=== PATIENT | female | born 1965 | race American Indian/Alaskan Native ===

== ENCOUNTER 2016-06-01 10:09 | Emergency (ER) | payer OTHER ==
[2016-06-01 10:19] VITALS: BP 126/80
--- NOTE | 2016-06-01 10:36 | Emergency Department Report ---
Upper Extremity - HPI Chief Complaint: Extremity Injury, Upper Stated Complaint: LT WRIST PAIN Time Seen by Provider: 06/01/16 10:29 Upper Extremity: Left Wrist Occurred When: 2 Days Mechanism: Twist Severity: moderate Symptoms: Yes Pain with Movement, No Deformity, No Limited Range of Movement, No Numbness, No Weakness, No Swelling Other History: [age]-year-old -British female with a past medical history of asthma comes in for complaint of left wrist pain for 2 days. Patient reports that she had injured her wrist by lifting herself off the floor. Patient reports she took Aleve yesterday evening about 9:00. Patient is wearing a wrist volar joint examination. She says this kind of helps with the pain. ED Review of Systems ROS: Stated complaint: LT WRIST PAIN Other details as noted in HPI ED Past Medical Hx - Past Medical History Previous Medical History?: Yes Hx Hypertension: No Hx Diabetes: No Hx Asthma: Yes - Surgical History Past Surgical History?: Yes Additional Surgical History: fibroid surgery 2011. toe surgery. - Social History Smoking Status: Unknown if ever smoked - Medications Home Medications: Home Medications Medication Instructions Recorded Confirmed Last Taken Type Naproxen [Naprosyn] 500 mg PO BID #30 tablet 10/14/13 Unknown Rx traMADol [Ultram 50 MG tab] 50 mg PO Q6HR PRN #20 tablet 02/17/15 Unknown Rx Albuterol Sulfate [Ventolin HFA] 2 puff IH Q4H PRN #1 hfa.aer.ad 12/02/15 Unknown Rx Cetirizine HCl [ZyrTEC] 10 mg PO DAILY #30 tab.chew 12/02/15 Unknown Rx Fluticasone [Flonase] 1 spray NS QDAY #1 bottle 12/02/15 Unknown Rx Ibuprofen [Motrin 800 MG tab] 800 mg PO Q8HR PRN #30 tablet 06/01/16 Unknown Rx Upper Extremity Exam - Exam General: Vital signs noted. No distress. Alert and acting appropriately. ED Course Vital Signs 06/01/16 10:16 Temperature 97.4 F L Pulse Rate 90 Respiratory 18 Rate Blood Pressure 126/80 O2 Sat by Pulse 99 Oximetry ED Medical Decision Making - Radiology Data Radiology results: report reviewed, image reviewed Ordering Physician: SHARIF MCCLAIN Date of Service: 06/01/16 Procedure(s): XR wrist 2V LT Accession Number(s): [id number] cc: SHARIF MCCLAIN Fluoro Time In Minutes: LEFT WRIST, 2 views: HISTORY: Pain, snuffbox pain. Routine views demonstrate the carpal bones to be well mineralized with well preserved bony mineralization and interosseous joint spaces. The carpal and adjacent articular bones have normal contours. The surrounding soft tissues are unremarkable. IMPRESSION: Unremarkable left wrist. Transcribed By: TTR Dictated By: ASHLEY HENRY JR, MD Electronically Authenticated By: ASHLEY HENRY JR, MD Signed Date/Time: 06/01/16 1041 Critical care attestation.: If time is entered above; I have spent that time in minutes in the direct care of this critically ill patient, excluding procedure time. ED Disposition Clinical Impression: Left wrist sprain Qualifiers: Encounter type: initial encounter Qualified Code(s): S63.502A - Unspecified sprain of left wrist, initial encounter Disposition: DISCHARGED TO HOME OR SELFCARE Is pt being admited?: No Does the pt Need Aspirin: No Condition: Stable Instructions: Wrist Sprain (ED), Wrist Injury (ED) Additional Instructions: Take pain medication as prescribed. Follow with her primary care provider. I recommend wearing a wrist splint. Prescriptions: Ibuprofen [Motrin 800 MG tab] 800 mg PO Q8HR PRN #30 tablet PRN Reason: Pain Referrals: IZAIAH ALATORRE MD [Primary Care Provider] - 3-5 Days Forms: Work/School Release Form(ED)
[2016-06-01] MEDS: MOTRIN PO ONE (10:41)
--- NOTE | 2016-06-01 10:47 | XRay Report ---
LEFT WRIST, 2 views: HISTORY: Pain, snuffbox pain. Routine views demonstrate the carpal bones to be well mineralized with well preserved bony mineralization and interosseous joint spaces. The carpal and adjacent articular bones have normal contours. The surrounding soft tissues are unremarkable. IMPRESSION: Unremarkable left wrist.
== END 2016-06-01 11:44 | disposition home or self-care (01) ==
LOC: ED 10:09
DX: S63.502A Unspecified sprain of left wrist, initial encounter (principal); J45.909 Unspecified asthma, uncomplicated; X58.XXXA Exposure to other specified factors, initial encounter; Y93.9 Activity, unspecified; Y99.9 Unspecified external cause status; Y92.89 Other specified places as the place of occurrence of the external cause
CPT/HCPCS: 99283

== ENCOUNTER 2019-01-22 08:49 | Outpatient (CLI) | payer OTHER ==
--- NOTE | 2019-01-23 09:37 | Mammography Report ---
DIGITAL SCREENING MAMMOGRAM WITH CAD, 01/22/2019 INDICATION: Routine screening mammography. TECHNIQUE: Digital bilateral 2D mammography was obtained in the craniocaudal and mediolateral obliq ue projections. This examination was interpreted with the benefit of Computer-Aided Detection analysi s. COMPARISON: 01/20/2018 FINDINGS: Breast Density: The breasts are almost entirely fatty. There is no evidence of dominant mass, suspicious calcifications or architectural distortion in eithe r breast. IMPRESSION: No mammographic evidence of malignancy. Follow up recommendation: Routine yearly BI-RADS Category 1: Negative. A "normal" or negative report should not discourage follow up or biopsy of a clinically significant f inding. A written summary of these findings will be mailed to the patient. The patient will be entered into a mammography reporting system which will generate a reminder letter for the patient's next appointmen t at the appropriate interval. The [employer] recommends yearly mammograms starting at age 40 and continuing as l guille as a woman is in good health. Breast MRI is recommended for women with an approximate 20-25% or greater lifetime risk of breast cancer, including women with a strong family history of breast or ova xavi cancer or who have been treated for Hodgkin's disease. Signer Name: Antonio Flynn MD Signed: 01/23/2019 9:33 AM Workstation Name: [id number]
== END 2019-01-22 08:50 | disposition home or self-care (01) ==
LOC: MAMMO 08:49
PROVIDERS: ATTEND Internal Medicine
DX: Z12.31 Encounter for screening mammogram for malignant neoplasm of breast (principal); J45.909 Unspecified asthma, uncomplicated
CPT/HCPCS: 77067

== ENCOUNTER 2019-11-18 00:21 | Emergency (ER) | payer OTHER ==
[2019-11-18] MEDS ORDERED: ASPIRIN 325 MG TAB PO ONE (01:54)
[2019-11-18 02:29] LABS: Basophils # (Auto) 0.1 K/mm3 (0.0-0.1); Eosinophils # (Auto) 0.2 K/mm3 (0.0-0.4); Hemoglobin 12.6 gm/dl (10.1-14.3); Monocytes # (Auto) 0.7 K/mm3 (0.0-0.8); Monocytes % (Auto) 8.9 % (0.0-7.3)
[2019-11-18 02:43] LABS: BUN/Creatinine Ratio 18; Blood Urea Nitrogen 16 mg/dL (7-17); Calcium 9.2 mg/dL (8.4-10.2); Hemolysis Index 9
[2019-11-18 02:44] LABS: Basophils % (Auto) 0.8 % (0.0-1.8); Eosinophils % (Auto) 2.2 % (0.0-4.3); Hematocrit 38.4 % (30.3-42.9); Lymphocytes # (Auto) 3.8 K/mm3 (1.2-5.4); Lymphocytes % (Auto) 45.4 % (13.4-35.0); Mean Corpuscular HGB Conc 33 % (30-34); Mean Corpuscular Volume 81 fl (79-97); Platelet Count 651 K/mm3 (140-440); Red Blood Count 4.71 M/mm3 (3.65-5.03); Red Cell Distribution Width 14.7 % (13.2-15.2)
--- NOTE | 2019-11-18 02:46 | XRay Report ---
CHEST 1 VIEW INDICATION: Chest Pain. COMPARISON: None. FINDINGS: Support devices: None. Heart: Within normal limits. Lungs/Pleura: No acute air space or interstitial disease. Additional findings: None. IMPRESSION: No acute abnormality. Signer Name: Ryne Knox MD Signed: 11/18/2019 2:41 AM Workstation Name: [id number]
--- NOTE | 2019-11-18 06:41 | Emergency Department Report ---
ED Chest Pain HPI - General Chief Complaint: Chest Pain Stated Complaint: CHEST PAIN Time Seen by Provider: 11/18/19 06:09 Source: patient Mode of arrival: Ambulatory Limitations: No Limitations - History of Present Illness Initial Comments: Patient is 54 years old female with history of asthma. Patient presented to the ER complaining of chest pain started last night. Patient described her pain as substernal and to the right side. Patient described the pain as aching with no radiation. Patient stated that pain increases with movement and improved with remaining still. Patient also stating that she is having some shortness of breath but she says she has asthma. Patient denied any fever or chills. No abdominal pain, nausea or vomiting. Patient stated that she was lifting heavy books in the last two days. MD Complaint: chest pain -: Last night Onset: during rest Pain Location: substernal, right chest Pain Radiation: none Severity: moderate Quality: aching Consistency: intermittent Improves With: remaining still Worsens With: movement - Related Data Previous Rx's Medication Instructions Recorded Last Taken Type Naproxen [Naprosyn] 500 mg PO BID #30 tablet 10/14/13 Unknown Rx traMADoL [Ultram 50 MG tab] 50 mg PO Q6HR PRN #20 tablet 02/17/15 Unknown Rx Albuterol Sulfate [Ventolin HFA] 2 puff IH Q4H PRN #1 hfa.aer.ad 12/02/15 Un known Rx Cetirizine HCl [ZyrTEC] 10 mg PO DAILY #30 tab.chew 12/02/15 Unknown Rx Fluticasone [Flonase] 1 spray NS QDAY #1 bottle 12/02/15 Unknown Rx Ibuprofen [Motrin 800 MG tab] 800 mg PO Q8HR PRN #30 tablet 06/01/16 Unknown Rx Allergies Allergy/AdvReac Type Severity Reaction Status Date / Time No Known Allergies Allergy Unverified 10/14/13 13:56 Heart Score - HEART Score History: Slightly suspicious EKG: Normal Age: 45-65 Risk factors: 1-2 risk factors Troponin: < normal limit HEART Score: 2 - Critical Actions Critical Actions: 0-3 pts:0.9-1.7%risk of adverse cardiac event.Candidate for discharge ED Review of Systems ROS: Stated complaint: CHEST PAIN Other details as noted in HPI Comment: All other systems reviewed and negative Constitutional: denies: chills, fever Respiratory: denies: cough, shortness of breath, SOB with exertion, wheezing Gastrointestinal: denies: abdominal pain, nausea, vomiting Musculoskeletal: denies: back pain Neurological: denies: headache, weakness, numbness, paresthesias, confusion ED Past Medical Hx - Past Medical History Previous Medical History?: Yes Hx Hypertension: No Hx Diabetes: No Hx Asthma: Yes - Surgical History Past Surgical History?: Yes Additional Surgical History: fibroid embolization. toe surgery. - Social History Smoking Status: Never Smoker Substance Use Type: None - Medications Home Medications: Home Medications Medication Instructions Recorded Confirmed Last Taken Type Naproxen [Naprosyn] 500 mg PO BID #30 tablet 10/14/13 Unknown Rx traMADoL [Ultram 50 MG tab] 50 mg PO Q6HR PRN #20 tablet 02/17/15 Unknown Rx Albuterol Sulfate [Ventolin HFA] 2 puff IH Q4H PRN #1 hfa.aer.ad 12/02/15 Unknown Rx Cetirizine HCl [ZyrTEC] 10 mg PO DAILY #30 tab.chew 12/02/15 Unknown Rx Fluticasone [Flonase] 1 spray NS QDAY #1 bottle 12/02/15 Unknown Rx Ibuprofen [Motrin 800 MG tab] 800 mg PO Q8HR PRN #30 tablet 06/01/16 Unknown Rx ED Physical Exam - General Limitations: No Limitations General appearance: alert, in no apparent distress - Head Head exam: Present: atraumatic, normocephalic, normal inspection - Eye Eye exam: Present: normal appearance - ENT ENT exam: Present: normal exam, normal orophraynx, mucous membranes moist - Neck Neck exam: Present: normal inspection, full ROM. Absent: tenderness, meningismus - Respiratory Respiratory exam: Present: normal lung sounds bilaterally, chest wall tenderness - Cardiovascular Cardiovascular Exam: Present: regular rate, normal rhythm, normal heart sounds - GI/Abdominal GI/Abdominal exam: Present: soft, normal bowel sounds. Absent: distended, tenderness, guarding, rebound, rigid, organomegaly, mass, bruit, pulsatile mass, hernia - Extremities Exam Extremities exam: Present: normal inspection, full ROM, normal capillary refill. Absent: pedal edema, calf tenderness - Back Exam Back exam: Present: normal inspection, full ROM. Absent: CVA tenderness (R) - Neurological Exam Neurological exam: Present: alert, oriented X3, CN II-XII intact, normal gait. Absent: motor sensory deficit - Psychiatric Psychiatric exam: Present: normal mood - Skin Skin exam: Present: warm, intact, normal color ED Course Vital Signs 11/18/19 01:40 Temperature 98.1 F Pulse Rate 79 Respiratory 14 Rate Blood Pressure 167/108 O2 Sat by Pulse 98 Oximetry ED Medical Decision Making - Lab Data Result diagrams: 11/18/19 02:12 11/18/19 02:12 - EKG Data -: EKG Interpreted by Me EKG shows normal: sinus rhythm Rate: normal - EKG Data Interpretation: no acute changes - Radiology Data Radiology results: report reviewed - Medical Decision Making Patient is 54 years old female with history of asthma. Patient presented to the ER complaining of chest pain started last night. Patient described her pain as substernal and to the right side. Patient described the pain as aching with no radiation. Patient stated that pain increases with movement and improved with remaining still. Patient also stating that she is having some shortness of breath but she says she has asthma. Patient denied any fever or chills. No abdominal pain, nausea or vomiting. Patient stated that she was lifting heavy books in the last two days. Patient EKG is unremarkable. cxr is negative for acute finding. labs reviewed and is normal. pain is reproducible. Patient advised to follow-up with her primary care physician in the next 2 to 3 days for possible outpatient cardiac work-up. Patient also advised to return to the ER if she develop any new symptoms or if her symptoms get worse. Critical care attestation.: If time is entered above; I have spent that time in minutes in the direct care of this critically ill patient, excluding procedure time. ED Disposition Clinical Impression: Chest pain, Costochondritis, acute Disposition: DC-01 TO HOME OR SELFCARE Is pt being admited?: No Condition: Stable Instructions: Chest Pain (ED), Costochondritis (ED) Referrals: CHEKO REDDY MD [Primary Care Provider] - 3-5 Days
[2019-11-18 07:37] LABS: INR 1.05 (0.87-1.13)
[2019-11-18 07:38] LABS: Partial Thromboplastin Time 28.6 Sec. (24.2-36.6)
[2019-11-18 09:48] VITALS: BP 131/95
== END 2019-11-18 08:51 | disposition home or self-care (01) ==
LOC: ED 00:21
DX: M94.0 Chondrocostal junction syndrome [Tietze] (principal); R07.89 Other chest pain; J45.909 Unspecified asthma, uncomplicated; Z98.890 Other specified postprocedural states; Z79.1 Long term (current) use of non-steroidal anti-inflammatories (NSAID); Z79.899 Other long term (current) drug therapy
CPT/HCPCS: 36415; 71045; 80048; 84484; 85025; 85379; 85610; 85730; 93005

== ENCOUNTER 2020-02-12 07:11 | Outpatient (CLI) | payer OTHER ==
--- NOTE | 2020-02-12 09:24 | Mammography Report ---
DIGITAL SCREENING MAMMOGRAM WITH CAD, 02/12/2020 CLINICAL INFORMATION / INDICATION: Routine screening mammography. TECHNIQUE: Digital bilateral 2D mammography was obtained in the craniocaudal and mediolateral obliqu e projections. This examination was interpreted with the benefit of Computer-Aided Detection analysis . COMPARISON: 01/22/2019, 01/20/2018 FINDINGS: Breast Density: There are scattered areas of fibroglandular density. No dominant mass, suspicious calcifications, or architectural distortion in either breast. IMPRESSION: No mammographic evidence of malignancy. Follow up recommendation: Routine yearly BI-RADS Category 1: Negative. A "normal" or negative report should not discourage follow up or biopsy of a clinically significant f inding. A written summary of these findings will be mailed to the patient. The patient will be entered into a mammography reporting system which will generate a reminder letter for the patient's next appointmen t at the appropriate interval. The [employer] recommends yearly mammograms starting at age 40 and continuing as l guille as a woman is in good health. Breast MRI is recommended for women with an approximate 20-25% or greater lifetime risk of breast cancer, including women with a strong family history of breast or ova xavi cancer or who have been treated for Hodgkin's disease. Signer Name: Kahlil Reid MD Signed: 02/12/2020 9:19 AM Workstation Name: [id number]
== END 2020-02-12 07:12 | disposition home or self-care (01) ==
LOC: MAMMO 07:11
PROVIDERS: ATTEND Internal Medicine
DX: Z12.31 Encounter for screening mammogram for malignant neoplasm of breast (principal)
CPT/HCPCS: 77067

== ENCOUNTER 2021-02-23 07:17 | Outpatient (CLI) | payer BC ==
--- NOTE | 2021-02-23 11:58 | Mammography Report ---
DIGITAL SCREENING MAMMOGRAM WITH CAD, 02/23/2021 CLINICAL INFORMATION / INDICATION: Routine screening mammography. TECHNIQUE: Digital bilateral 2D mammography was obtained in the craniocaudal and mediolateral obliqu e projections. This examination was interpreted with the benefit of Computer-Aided Detection analysis . COMPARISON: 02/12/2020, 01/22/2019 FINDINGS: Breast Density: The breasts are almost entirely fatty. No dominant mass, suspicious calcifications, or architectural distortion in either breast. No interval change. IMPRESSION: No mammographic evidence of malignancy. Follow up recommendation: Routine yearly BI-RADS Category 1: Negative. A "normal" or negative report should not discourage follow up or biopsy of a clinically significant f inding. A written summary of these findings will be mailed to the patient. The patient will be entered into a mammography reporting system which will generate a reminder letter for the patient's next appointmen t at the appropriate interval. The [employer] recommends yearly mammograms starting at age 40 and continuing as l guille as a woman is in good health. Breast MRI is recommended for women with an approximate 20-25% or greater lifetime risk of breast cancer, including women with a strong family history of breast or ova xavi cancer or who have been treated for Hodgkin's disease. Signer Name: Jossy Tran MD Signed: 02/23/2021 11:52 AM Workstation Name: [id number]
== END 2021-02-23 07:18 | disposition home or self-care (01) ==
LOC: MAMMO 07:17
PROVIDERS: ATTEND Internal Medicine
DX: Z12.31 Encounter for screening mammogram for malignant neoplasm of breast (principal)
CPT/HCPCS: 77067